=== PATIENT | male | born 1960 | race Caucasian/White ===

== ENCOUNTER → 2023-11-19 | Outpatient (CLI) | payer SELFPAY ==
--- NOTE | 2023-11-19 | LES_PTH ---
PATIENT: LAKHWINDER FALK LOC: [facility] U#:[id number] AGE/SX: 62/M ROOM: RE11/19/[address]: Dr. Jami López MD : 1960 BED: DIS: 11/19/2023 SPEC #: [id number] RECD: 11/19/23 15:55 STATUS: SHAYE CANDI #: [id number] AARON: 11/19/23 00:[address]: Jami López DEPT: SURGICAL PATHOLOGY RECD BY: Ashu Del Cid ENTERED: 11/20/23 07:20 SP TYPE: Lesion OTHR DR: Dr. Barron Villarreal MD Tissues: Skin of chest Procedures: Surgery Specimen Level IV HEADER OPERATION: Excision of chest wall PRE-OP DIAGNOSIS: History of basal cell carcinoma 2017/ [facility] TISSUE SUBMITTED: Chest lesion tissue- short stitch superior, long stitch lateral MICROSCOPIC DIAGNOSIS Chest lesion, excisional biopsy: Basal cell carcinoma, completely excised. Mildly actinic keratosis and solar elastosis. See comment. / 11/24/2023 COMMENT The tumor is 0.2cm away from the closest lateral margin. MICROSCOPIC DESCRIPTION Slides are reviewed. GROSS DESCRIPTION Received in fixative is one container labeled with the patient's name and designated Chest lesion. The specimen consists of a piece of quinones-white skin with underlying tissue measuring 6.0 x 3.5 cm and up to 1.0cm in thickness. There is an ulcerated lesion on the surface measuring 1.5 x 1.5cm. This specimen is oriented as follows: short stitch- superior, long stitch- lateral. The specimen is inked as follows: Superior tip-yellow, Inferior tip-green, Lateral margin-blue, Medial margin-black, Deep margin-red. This specimen is serially sectioned and submitted entirely as follows: 1- superior and inferior tip, 2-5- lesion, 6-8- medical service representative sections adjacent to the lesion, 9-12- rest of the specimen. [facility] 11/21/2023 TC:0 CPT:75632
== END | disposition home or self-care (01) ==
LOC: LABSPEC 16:01
PROVIDERS: PCP Family Medicine; Referring Provider Surgery; Visit Provider Surgery
DX: C44.519 Basal cell carcinoma of skin of other part of trunk (principal)
CPT/HCPCS: 88305